=== PATIENT | female | born 1950 | race Caucasian/White ===

== ENCOUNTER → 2017-09-23 | Outpatient (CLI) | payer OTHER ==
[~2017-09-23] MED LIST: ALE70 PO; AZIT-1 PO; BENZ100C4 PO; BENZ200C15 PO; CALC600T63 PO; ESOM40CA42 PO; KET10 PO; LOR5/325 PO; OMEP-125 PO; PRED20TA6 PO
[2017-09-23 15:40] LABS: PLATELET COUNT, AUTOMATED 260 K/uL (150-450)
== END ==
LOC: LAB 15:21
PROVIDERS: ATTEND Surgery
DX: R10.9 Unspecified abdominal pain (principal)
CPT/HCPCS: 36415; 82040; 82150; 82247; 82310; 82374; 82435; 82565; 82947; 83690; 84075; 84132; 84155; 84295; 84450; 84460; 84520; 85025

== ENCOUNTER → 2017-10-01 | Outpatient (CLI) | payer OTHER ==
[~2017-10-01] MED LIST changes: +GADOBENATE 529MG/1ML 15ML VIAL IVP ONE; +NS 0.9% 50 ML VIAL 50 ML ONE
--- NOTE | 2017-10-01 10:04 | RADIOLOGY IMAGING REPORT ---
FACILITY: [facility] [place] PATIENT NAME: Brunilda Capone : 1950 MR: [id number] V: [id number] EXAM DATE: ORDERING PHYSICIAN: MELLO OCAMPO TECHNOLOGIST: Location: [facility] Patient: Brunilda Capone : 1950 Visit/Account:[id number] Date of Sevice: 10/01/2017 ABDOMEN W W/O CONTRAST HISTORY: Elevated lipase. Recent cholecystectomy. ADDITIONAL HISTORY: None. TECHNIQUE: Multiplanar multisequence magnetic resonance imaging of the abdomen without and with intr avenous contrast. CONTRAST: 12 mL of MultiHance COMPARISON: None. FINDINGS: Liver: Multiple subcentimeter simple cysts. 2.2 x 2.3 cm cystic lesion within the left lobe of the l iver segment 4 with lobular contours and thin septations. Gallbladder and bile ducts: Cholecystectomy The common bile duct measures 4 mm. No filling defect wi thin the common bile duct. Spleen: Negative. Adrenal glands: Negative. Pancreas: No pancreatic mass. Pancreatic duct normal caliber. No acute peripancreatic inflammatory change. No pseudocyst. Kidneys: Simple renal cysts measuring up to 1 cm. Vessels: Normal Bowel/peritoneum/mesentery: Negative Lymph nodes: Negative Bones/soft tissues: Negative Visualized lung bases: Negative Visualized pelvis: Negative Other findings: None significant IMPRESSION: 1. Status post cholecystectomy without postoperative fluid collection, biliary ductal dilatation or filling defect within the common bile duct. Pancreas is unremarkable. No MRI evidence of pancreatit is. 2. Multiple simple hepatic cysts as well as a 2.3 cm cystic lesion within the left lobe the liver wi th thin septations. Differential includes mildly complex cyst and biliary cystadenoma. Report Dictated By: Jeremías Cleaning MD at 10/01/2017 9:36 AM Report E-Signed By: Jeremías Cleaning MD at 10/01/2017 9:59 AM WSN:[email or web address]
== END ==
LOC: MRI 04:26
PROVIDERS: ATTEND Surgery
DX: K76.89 Other specified diseases of liver (principal); Z90.49 Acquired absence of other specified parts of digestive tract
CPT/HCPCS: 74183; A9577; J7050